=== PATIENT | female | born 1955 | race Caucasian/White ===

== ENCOUNTER 2023-12-26 18:16 | Emergency (ER) | payer MEDICAID, OTHER ==
[2023-12-26] MEDS ORDERED: methylPREDNISolone Sod Succ/PF 125 MG/2 ML VIAL ONE (18:56)
[2023-12-26] MEDS ORDERED: Acetaminophen 500 MG TAB ONE (18:56)
[2023-12-26] MEDS ORDERED: Ipratropium/Albuterol 3 ML NEB ONE (18:56)
[2023-12-26 19:21] LABS: INR-International Normal Ratio 1.1; Prothrombin Time 14.7 sec (12.0-14.7)
[2023-12-26 19:27] LABS: Band 15 % (5-11); Hematocrit 31.3 % (36.0-47.0); Hemoglobin 10.2 g/dL (12.0-16.0); Hypochromia SLIGHT = 6-15 cells (100X) (0-5/hpf); Lymphocytes 29 % (21-51); MDiff Complete? YES; Mean Corpuscular HGB CONC 32.8 g/dL (32.0-36.0); Mean Corpuscular Hemoglobin 31.1 pg (27.0-31.0); Mean Platelet Volume 8.7 fL (7.4-10.4); Monocytes 14 % (0-10); Neutrophil 42 % (42-75); Platelet Adequacy Comment Appears Adequate; Platelet Count 148 10x3/uL (130-400); RBC Distribution Width 13.9 % (11.5-14.5); Red Blood Cell (RBC) Count 3.29 mill/uL (4.20-5.40); White Blood Cell (WBC) Count 3.5 10x3/uL (4.8-10.8)
[2023-12-26 19:30] LABS: ALT (SGPT) 17 U/L (8-55); AST (SGOT) 24 U/L (5-34); Albumin 3.3 g/dL (3.4-4.8); Alkaline Phosphatase 99 U/L (40-110); Anion Gap 14 mmol/L (10-20); BUN (Urea Nitrogen) 21 mg/dL (9.8-20.1); Bilirubin, Total 0.4 mg/dL (0.2-1.2); Calc. Creatinine Clearance 0 mL/min (70-130); Calcium 8.1 mg/dL (7.8-10.44); Carbon Dioxide 22 mmol/L (23-31); Chloride 103 mmol/L (98-107); Estimated GFR 63; Globulin 2.6 g/dL (2.4-3.5); Glucose 88 mg/dL (80-115); Protein, Total 5.9 g/dL (5.8-8.1); Sodium 135 mmol/L (136-145)
[2023-12-26] MEDS ORDERED: Azithromycin 500 MG VIAL ONE (19:52)
[2023-12-26] MEDS ORDERED: Sodium Chloride 0.9% 250 ML 250 ML ONE (19:52)
[2023-12-26] MEDS ORDERED: Sodium Chloride 0.9% 100 ML ONE (19:52)
[2023-12-26] MEDS ORDERED: cefTRIAXone (ROCEPHIN) 2 GM VIAL ONE (19:52)
== END 2023-12-26 22:40 | disposition home or self-care (01) ==
LOC: MADERS 18:16
DX: J44.1 Chronic obstructive pulmonary disease with (acute) exacerbation (principal); D64.9 Anemia, unspecified; J90 Pleural effusion, not elsewhere classified; I11.0 Hypertensive heart disease with heart failure; I50.9 Heart failure, unspecified; I25.10 Atherosclerotic heart disease of native coronary artery without angina pectoris; E03.9 Hypothyroidism, unspecified; E11.9 Type 2 diabetes mellitus without complications; K46.9 Unspecified abdominal hernia without obstruction or gangrene; Z79.84 Long term (current) use of oral hypoglycemic drugs; Z79.899 Other long term (current) drug therapy
CPT/HCPCS: 71045; 80053; 83605; 83880; 85025; 85610; 85730; 87040; 87635; 87804 ×2; 94760; J0456; 36415; 96365; 96366; 96367; 96375; J0696; J2930; J3490; J7050; J7620